=== PATIENT | female | born 1955 | race Caucasian/White ===

== ENCOUNTER 2017-09-02 10:58 | Emergency (ER) | payer BC, OTHER ==
--- NOTE | 2017-09-02 11:02 | PDOC ---
History of Present Illness - General Chief Complaint: Head/Neck problem Stated Complaint: FLAIR UP OF MS History Source: Patient Exam Limitations: No Limitations - History of Present Illness Initial Comments: 09/02/17 13:09 Pt presents to the ED complaining of a one week history of worsening L arm and leg weakness, numbness and tingling. Patient has a history of MS, and feels that her symptoms are consistent with an MS flare. She has not had a flare for many years. Denies fever, cough, urinary complaints or other symptoms consistent with infection. Reports that she takes avonex one weekly for her MS , but does not take chronic steroids. Her symptoms, especially her L leg weakness, became acutely worse yesterday, so she called her neurologist's office. Presents to the ED today because her neurologist recommended that she come to the ED for evaluation. Past History - Past Medical History Allergies/Adverse Reactions: Allergies Allergy/AdvReac Type Severity Reaction Status Date / Time Penicillins Allergy Intermediate Hives Verified 09/02/17 11:00 Home Medications: Ambulatory Orders Interferon Beta-1A [Avonex] 1 dose SQ WEEKLY 09/02/17 Prednisone [Deltasone] 20 mg PO DAILY #72 tablet 09/02/17 Review of Systems - Review of Systems Able to Perform ROS?: Yes Is the patient limited Grenadian proficient: No Constitutional: No: Symptoms Reported, See HPI, Chills, Diaphoresis, Fever, Loss of Appetite, Malaise, Night Sweats, Weakness, Weight Stable, Unintentional Wgt. Loss, Unexplained wgt Loss, Other HEENTM: No: Symptoms Reported, See HPI, Eye Pain, Blurred Vision, Tearing, Recent change in vision, Double Vision, Cataracts, Ear Pain, Ocular Prothesis, Ear Discharge, Nose Pain, Nose Congestion, Tinnitus, Nose Bleeding, Hearing Loss , Throat Pain, Throat Swelling, Mouth Pain, Dental Problems, Difficulty Swallowing, Mouth Swelling, Other Respiratory: No: Symptoms reported, See HPI, Cough, Orthopnea, Shortness of Breath, SOB with Exertion, SOB at Rest, Stridor, Wheezing, Productive cough, Hemoptysis, Other Cardiac (ROS): No: Symptoms Reported, See HPI, Chest Pain, Edema, Irregular Heart Rate, Lightheadedness, Palpitations, Syncope, Chest Tightness, Other ABD/GI: No: Symptoms Reported, See HPI, Abdominal Distended, Abd. Pain w/ defecation, Blood Streaked Bowels, Constipated, Diarrhea, Difficulty Swallowing , Nausea, Poor Appetite, Poor Fluid Intake, Rectal Bleeding, Vomiting, Indigestion, Abdominal cramping, Tarry Stools, Other : No: Symptoms Reported, See HPI, Burning, Dysuria, Discharge, Frequency, Flank Pain, Hematuria, Incontinence, Pain, Urgency, Testicular Mass, Testicular Swelling, Lesions, Testicular Pain, Other Musculoskeletal: No: Symptoms Reported, See HPI, Back Pain, Gout, Joint Pain, Joint Swelling, Muscle Pain, Muscle Weakness, Neck Pain, Joint Stiffness, Other Integumentary: No: Symptoms Reported, See HPI, Bruising, Change in Color, Change in Hair/Nails, Dryness, Erythema, Flushing, Lesions, Lumps, Pallor, Pruritus, Rash, Sweating, Other Neurological: Yes: Numbness, Paresthesia, Weakness. No: Symptoms reported, See HPI, Headache, Pre-Existing Deficit, Seizure, Tingling, Tremors, Unsteady Gait, Ataxia, Dizziness, Other *Physical Exam - Physical Exam General Appearance: Yes: Nourished, Appropriately Dressed. No: Apparent Distress, Disheveled, Mild Distress, Moderate Distress, Severe Distress, Alcohol on Breath, Intoxicated, Cachetic, Obese, Thin, Other HEENT: positive: Normal ENT Inspection. negative: EOMI, BROOKS, Symmetrical, TMs Normal, Pharynx Normal, Pale Conjunctivae, Photophobia, Scleral Icterus (R), Scleral Icterus (L), Muffled/Hoarse voice, Pharyngeal Erythema, Tonsillar Exudate, Tonsillar Erythema, Nasal Congestion, Rhinorrhea, Sinus Tenderness, Orbits, Hearing Decreased, Hearing Grossly Normal, TM Bulging, TM Dull, TM Erythema, Lesions, Ontiveros, Excessive drooling, Thrush, Other Neck: positive: Supple Respiratory/Chest: positive: Lungs Clear, Normal Breath Sounds Cardiovascular: positive: Regular Rhythm, Regular Rate, S1, S2 Gastrointestinal/Abdominal: positive: Normal Bowel Sounds, Flat, Soft. negative : Tender, Organomegaly, Pulsatile Mass, Increased Bowel Sounds, Decreased BS, Protuberent, Distended, Guarding, Rebound, Tenderness, Hernia, Mass, Hepatomegaly, Spleenomegaly, Other Musculoskeletal: positive: Normal Inspection Extremity: positive: Normal Inspection, Normal Range of Motion Integumentary: positive: Normal Color, Dry, Warm Neurologic: positive: direct sales representative II-XII NML intact, Fully Oriented, Alert, Normal Mood/ Affect. negative: Motor Strength 5/5 (4/5 strength L exhaust emissions inspector, biceps, deltoid. + leg drift. 4/5 strength L leg), Abnormal Cranial NS, Respond to painful stimul , Responsive, EOM Palsy, Facial Droop, Numbness, Sensory Deficit, Finger to Nose , Confused, Disoriented, Depressed Affect, Babinski, Other ED Treatment Course - LABORATORY CBC & Chemistry Diagram: 09/02/17 11:42 09/02/17 11:42 Medical Decision Making - Medical Decision Making 09/02/17 13:23 Pt presents to the ED complaining of L upper and lower extremity weakness and tingling, consistent with MS flare. Denies other complaints. + weakness on exam. Likely MS flare. Attempted to discuss the case with pt's neurologist, but her primary neurologist, Dr. Barlow is on vacation, and the neurologist who is covering until [address] Galvez, refused to take the call ( as per answering service). Case discussed with Dr. Frazier, who recommended MRI with and without jose alejandro and discharge home with high dose steroids. Case discussed with radiologist Dr. Garcia, who has approved the study. Will check MRI and reassess the patient. THe answering service tells me that a new neurologist will be lone lead lineman after 3 pm, so I will attempt to re-page the neurology service after MRI is resulted. Will likely discharge the patient home with high dose prednisone. *DC/Admit/Observation/Transfer Diagnosis at time of Disposition: Multiple sclerosis exacerbation - Discharge Dispostion Disposition: HOME Condition at time of disposition: Good Decision to Admit order: No - Prescriptions Prescriptions: Prednisone [Deltasone] 20 mg PO DAILY #72 tablet - Referrals Referrals: Ary Barlow [Non Staff, Medical] - - Patient Instructions Printed Discharge Instructions: DI for Multiple Sclerosis Additional Instructions: return to the ED for new or changing symptoms, especially worsening weakness, numbness or tingling or worsening vision. Return to the Ed for other new or worsening symptoms. Make sure that you follow up with your doctor--call the answering service tomorrow and call Dr. Barlow on Monday for follow up. Make sure that you start the prednisone. - Post Discharge Activity
[2017-09-02 11:11] VITALS: BP 162/91; PULSE 81; TEMP 98.7; BMI 25.6
[2017-09-02 11:45] LABS: BASO % 1.5 % (0-2.0); EOS % 0.8 % (0-4.5); HEMATOCRIT 42.4 % (32.4-45.2); HEMOGLOBIN 14.4 GM/dl (10.7-15.3); LYMPH % 16.4 % (8-40); MEAN CELL VOLUME 91.1 fl (80-96); MEAN PLT VOLUME 7.3 fl (7.5-11.1); NEUT % 75.3 % (42.8-82.8); PLATELET COUNT 367 K/MM3 (134-434); RBC 4.65 M/mm3 (3.60-5.2); RDW 12.5 % (11.6-15.6); WHITE BLOOD COUNT 7.5 K/mm3 (4.0-10.8)
[2017-09-02 11:46] LABS: PH,URINE 7.5 (4.5-8); URINE APPEARANCE Clear; URINE BILIRUBIN Negative (NEGATIVE); URINE BLOOD Negative (NEGATIVE); URINE GLUCOSE (UA) Negative (NEGATIVE); URINE KETONE Negative (NEGATIVE); URINE NITRITE Negative (NEGATIVE); URINE PROTEIN Negative (NEGATIVE); URINE UROBILINOGEN 0.2 (0.2-1.0)
[2017-09-02 11:47] LABS: URINE COLOR AMBER; URINE LEUK ESTERASE TRACE (NEGATIVE)
[2017-09-02 12:01] LABS: ALBUMIN 4.5 g/dl (3.5-5.0); ALK PHOS 68 U/L (32-92); ANION GAP 7 (8-16); BLOOD UREA NITROGEN 9 mg/dl (7-18); CALCIUM 8.9 mg/dl (8.4-10.2); CHLORIDE 98 mmol/L (98-107); CO2 31 mmol/L (22-28); GLUCOSE,RANDOM 99 mg/dl (74-106); POTASSIUM 3.7 mmol/L (3.5-5.1); SGOT/AST 18 U/L (10-42); SGPT/ALT 12 U/L (10-40); SODIUM 136 mmol/L (136-145); TOT PROT 6.9 g/dl (6.4-8.3)
[2017-09-02 12:08] LABS: BILIRUBIN,TOTAL < 0.5 mg/dl (0.2-1.0); CREATININE < 0.8 mg/dl (0.6-1.3)
[2017-09-02 12:10] LABS: URINE WBC 0-3 (0-5)
== END 2017-09-02 16:35 | disposition home or self-care (01) ==
LOC: FER 10:58
DX: G35 Multiple sclerosis (principal)
CPT/HCPCS: 36415; 70553-TC; 80053; 81003; 81015; 85025; 99282-25

== ENCOUNTER 2023-12-05 15:20 | Emergency (ER) | payer BC, OTHER ==
[2023-12-05 15:41] VITALS: BP 145/87; PULSE 86; RESP 16; TEMP 98; BMI 26.5
[2023-12-05] MEDS ORDERED: KETOROLAC TROMETHAMINE 30 MG/1 ML VIAL ONE (16:58)
[2023-12-05] MEDS ORDERED: LIDOCAINE 5% TOPICAL PATCH ONE (16:59)
[2023-12-05] MEDS: KETOROLAC TROMETHAMINE 30 MG/1 ML VIAL IM ONE (17:16)
[2023-12-05] MEDS: LIDOCAINE 5% TOPICAL PATCH TP ONE (17:16)
[2023-12-05] MEDS ORDERED: LIDOCAINE PATCH REMOVAL MC SCH (22:00)
== END 2023-12-05 20:28 | disposition home or self-care (01) ==
LOC: FER 15:20
PROC: 3E0233Z Introduction of Anti-inflammatory into Muscle, Percutaneous Approach (ICD-10-PCS; principal; 2023-12-05)
DX: M54.50 Low back pain, unspecified (principal); G89.29 Other chronic pain; R53.1 Weakness
CPT/HCPCS: 72131-TC; 81003; 81015; 87086; 99284-25